=== PATIENT | male | born 1940 | race Caucasian/White ===

== ENCOUNTER 2016-05-02 09:27 | Emergency (ER) | payer OTHER, BC ==
[2016-05-02] MEDS ORDERED: KETOROLAC TROMETHAMINE 30 MG/1 ML VIAL IVPUSH ONE ×2 (09:38→10:30)
[2016-05-02] MEDS ORDERED: methylPREDNISolone NA SUCC 125 MG/2 ML VIAL IVPB ONE (09:38)
[2016-05-02 09:41] VITALS: PULSE 81; TEMP 97.3; BMI 28.6
[2016-05-02] MEDS ORDERED: KETOROLAC TROMETHAMINE 30 MG/1 ML VIAL ONE (09:42)
[2016-05-02] MEDS ORDERED: methylPREDNISolone NA SUCC 125 MG/2 ML VIAL ONE (09:42)
--- NOTE | 2016-05-02 09:45 | PDOC ---
History of Present Illness - General Chief Complaint: Pain, Acute Stated Complaint: LEFT FOOT GOUT Time Seen by Provider: 05/02/16 09:29 - History of Present Illness Initial Comments: 05/02/16 09:42 75-year-old male with a past medical history of hypertension, hyperlipidemia, and gout He's had multiple bouts of recurrent gout in the base of his left great toe For the past year, he has had tophi deposits on his left great toe Patient is complaining of a one-week flare of gout in his left great toe base He started taking Naprosyn at home, and he was starting to feel better However yesterday morning he ran out of Naprosyn Last night his left great toe base gout started worsening again He states the pain was severe through the night, and worse again this morning, prompting him to come to the emergency department He denies any dietary indiscretions, he denies any injury or trauma to the area He states that this is exactly the same as his prior gout flares He denies any other complaints at this time He denies any fevers or chills Past History - Past Medical History Allergies/Adverse Reactions: Allergies Allergy/AdvReac Type Severity Reaction Status Date / Time Sulfa (Sulfonamide Allergy Verified 05/27/15 09:15 Antibiotics) sulfur [From Sulfur-8] Allergy Verified 05/27/15 09:15 Home Medications: Ambulatory Orders Metoprolol Succinate [Toprol XL -] 25 mg PO DAILY 06/26/12 Atorvastatin Calcium 20 mg PO DAILY #90 tablet 02/25/14 Albuterol Sulfate Inhaler - [Ventolin HFA Inhaler -] 1 - 2 inh PO Q6H PRN #1 inhaler 09/08/14 Cholecalciferol (Vitamin D3) [Vitamin D3] 1,000 unit PO DAILY tablet 05/21/15 Indomethacin 25 mg PO DAILY 05/27/15 Indomethacin [Indocin -] 25 mg PO BID #14 capsule 05/02/16 Naproxen [Naprosyn -] 500 mg PO BID PRN 05/02/16 Oxycodone HCl/Acetaminophen [Percocet 5-325 mg Tablet] 1 tab PO Q6H PRN #10 tablet MDD 3 05/02/16 Prednisone [Deltasone -] 20 mg PO DAILY #15 tablet 05/02/16 Anemia: No Asthma: Yes (HAYFEVER) Cancer: No Cardiac Disorders: No CVA: No COPD: No CHF: No Dementia: No Diabetes: No GI Disorders: No Disorders: No HTN: Yes Hypercholesterolemia: Yes HIV: Yes Liver Disease: No Seizures: No Thyroid Disease: No Other medical history: GOUT - Surgical History Abdominal Surgery: No Appendectomy: No Cardiac Surgery: No Cholecystectomy: No Lung Surgery: No Neurologic Surgery: No Orthopedic Surgery: No - Immunization History Td Vaccination: Yes Immunization Up to Date: No - Psycho/Social/Smoking Cessation Hx Anxiety: No Suicidal Ideation: No Smoking Status: No Smoking History: Former smoker Have you smoked in the past 12 months: No Number of Cigarettes Smoked Daily: 0 If you are a former smoker, when did you quit?: 1969'S Cigars Per Day: 0 Information on smoking cessation initiated: No Hx Alcohol Use: Yes Drug/Substance Use Hx: No Substance Use Type: None Hx Substance Use Treatment: No *Physical Exam - Vital Signs Last Vital Signs Temp Pulse Resp BP Pulse Ox 97.3 F L 81 18 150/90 97 05/02/16 09:28 05/02/16 09:28 05/02/16 09:28 05/02/16 09:28 05/02/16 09:28 - Physical Exam Comments: 05/02/16 09:43 Physical exam Last Vital Signs Temp Pulse Resp BP Pulse Ox 97.3 F L 81 18 150/90 97 05/02/16 09:28 05/02/16 09:28 05/02/16 09:28 05/02/16 09:28 05/02/16 09:28 Patient is alert and answering questions Head is normocephalic and atraumatic Left lower extremity There is what appears to be in acute gout flare at the base of the left great toe The areas are very tender There are tophi deposits on the left great toe The toes are warm, with intact sensation and good capillary refill There is no evidence of lymphangitic streaking, or cellulitis Dorsalis pedis pulses intact ED Treatment Course - LABORATORY CBC & Chemistry Diagram: 05/02/16 09:45 05/02/16 09:45 Medical Decision Making - Medical Decision Making 05/02/16 09:45 Recurrent acute gout flare Was responding initially to NSAIDs, but patient has run out of Naprosyn In the past he has been treated with prednisone Will start with 15 mg of Toradol IV, and 125 mg of Solu-Medrol IV I will check his BUN and creatinine, as this has not been checked for about a year 05/02/16 11:04 After laboratory results, given another 15 mg of Toradol IV for total of 30 Laboratory Results - last 24 hr 05/02/16 05/02/16 09:45 09:45 WBC 6.8 RBC 4.70 Hgb 14.3 Hct 42.1 MCV 89.5 MCHC 33.9 RDW 12.3 Plt Count 186 MPV 7.9 D Sodium 138 Potassium 4.1 Chloride 103 Carbon Dioxide 27 Anion Gap 8 BUN 18 D Creatinine 1.0 Creat Clearance w eGFR > 60 Random Glucose 115 H Uric Acid 8.0 H Calcium 9.2 Total Bilirubin 0.8 AST 22 ALT 18 Alkaline Phosphatase 66 Total Protein 6.5 Albumin 3.7 Labwork consistent with acute gout with elevated uric acid Patient starting to feel better after medications We'll discharge to home on Indocin, and prednisone taper, Percocet if needed for nighttime pain only *DC/Admit/Observation/Transfer Diagnosis at time of Disposition: Gout attack Qualifiers: Encounter type: initial encounter Laterality: left - Discharge Dispostion Disposition: HOME Condition at time of disposition: Improved - Referrals Referrals: Pool Medina MD [Primary Care Provider] - 24 hours - Patient Instructions Printed Discharge Instructions: Gout, DI for Gout Additional Instructions: Indocin as directed-do not take this medication on an empty stomach Prednisone taper as directed-start at 6 PM this evening Percocet only if needed for nighttime pain Elevate and rest Followup with your primary care physician in 24-48 hours Return immediately if you worsen in any way Take your medications as directed
[2016-05-02 10:11] LABS: MCH 30.3 pg (25.7-33.7); MCHC 33.9 g/dl (32.0-35.9); MEAN CELL VOLUME 89.5 fl (80-96); MEAN PLT VOLUME 7.9 fl (7.5-11.1); PLATELET COUNT 186 K/MM3 (134-434); RDW 12.3 % (11.9-15.9); WHITE BLOOD COUNT 6.8 K/mm3 (4.0-10.0)
[2016-05-02 10:21] LABS: ALBUMIN 3.7 g/dl (3.5-5.0); ALK PHOS 66 U/L (32-92); ANION GAP 8 (8-16); BILIRUBIN,TOTAL 0.8 mg/dl (0.2-1.0); CALCIUM 9.2 mg/dl (8.4-10.2); CO2 27 mmol/L (22-28); GLUCOSE,RANDOM 115 mg/dl (74-106); SGOT/AST 22 U/L (10-42); SGPT/ALT 18 U/L (10-40); TOT PROT 6.5 g/dl (6.4-8.3)
[2016-05-02 10:34] VITALS: BP 146/85
== END 2016-05-02 11:16 | disposition home or self-care (01) ==
LOC: FER 09:27
PROC: 3E0333Z Introduction of Anti-inflammatory into Peripheral Vein, Percutaneous Approach (ICD-10-PCS; principal; 2016-05-02)
PROC: 3E033GC Introduction of Other Therapeutic Substance into Peripheral Vein, Percutaneous Approach (ICD-10-PCS; 2016-05-02)
DX: M10.9 Gout, unspecified (principal); I10 Essential (primary) hypertension; E78.5 Hyperlipidemia, unspecified; Z21 Asymptomatic human immunodeficiency virus [HIV] infection status
CPT/HCPCS: 36415; 80053; 84550; 85027; 99281-25

== ENCOUNTER 2016-07-06 19:52 | Emergency (ER) | payer OTHER, BC ==
--- NOTE | 2016-07-06 19:59 | PDOC ---
History of Present Illness - General History Source: Patient, Old Records Exam Limitations: No Limitations - History of Present Illness Initial Comments: 07/06/16 20:16 The patient is a 75 year old male presenting with his , with a significant past medical history of hypertension, hyperlipidemia, and gout, who presents to the emergency department with a gout flare up on his right foot. He's had multiple bouts of recurrent gout in the base of his left great toe. Patient is complaining of a 4 day flare of gout in his right foot. He states the pain was severe through the night, and worse again this morning, prompting him to come to the emergency department. 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 The patient denies chest pain, shortness of breath, headache and dizziness. Denies fever, chills, nausea, vomit, diarrhea and constipation. Denies dysuria, frequency, urgency and hematuria. Allergies: Sulfa and Sulfur Past surgical history: None reported Social history: Social alcohol use. No drug or tobacco use. PMD - Dr Maddy Medina <Dave Lucia - Last Filed: 07/06/16 20:16> - General History Source: Patient Exam Limitations: No Limitations <Marybeth Crews - Last Filed: 07/08/16 08:47> - General Chief Complaint: Pain, Acute Stated Complaint: GOUT PAIN RIGHT FOOT Time Seen by Provider: 07/06/16 19:54 Past History <Dave Lucia - Last Filed: 07/06/16 20:16> - Past Medical History Anemia: No Asthma: Yes (HAYFEVER) Cancer: No Cardiac Disorders: No CVA: No COPD: No CHF: No Dementia: No Diabetes: No GI Disorders: No Disorders: No HTN: Yes Hypercholesterolemia: Yes HIV: Yes Liver Disease: No Seizures: No Thyroid Disease: No - Surgical History Abdominal Surgery: No Appendectomy: No Cardiac Surgery: No Cholecystectomy: No Lung Surgery: No Neurologic Surgery: No Orthopedic Surgery: No - Immunization History Td Vaccination: Yes Immunization Up to Date: No - Psycho/Social/Smoking Cessation Hx Anxiety: No Suicidal Ideation: No Smoking Status: No Smoking History: Former smoker Have you smoked in the past 12 months: No Number of Cigarettes Smoked Daily: 0 If you are a former smoker, when did you quit?: Cigars Per Day: 0 Hx Alcohol Use: Yes Drug/Substance Use Hx: No Substance Use Type: None Hx Substance Use Treatment: No <Marybeth Crews - Last Filed: 07/08/16 08:47> - Past Medical History Allergies/Adverse Reactions: Allergies Allergy/AdvReac Type Severity Reaction Status Date / Time Sulfa (Sulfonamide Allergy Verified 07/06/16 19:54 Antibiotics) sulfur [From Sulfur-8] Allergy Verified 07/06/16 19:54 Home Medications: Ambulatory Orders Acetaminophen W/ Codeine #3 [Tylenol # 3 -] 1 tab PO TID PRN #12 tablet MDD 3 Atorvastatin Ca [Lipitor] 20 mg PO HS 07/06/16 Methylprednisolone [Medrol Dose Octavio] 4 mg PO ASDIR #21 tablet 07/06/16 Metoprolol Succinate [Toprol Xl] 25 mg PO DAILY 07/06/16 Review of Systems - Review of Systems Able to Perform ROS?: Yes Comments:: 07/06/16 20:17 GENERAL/CONSTITUTIONAL: No: fever, chills, weakness, loss of appetite. HEAD, EYES, EARS, NOSE AND THROAT: No: change in vision, ear pain, discharge, sore throat, throat swelling. CARDIOVASCULAR: No: chest pain, lightheadedness, palpitations, syncope RESPIRATORY: No: cough, shortness of breath, wheezing, hemoptysis, stridor. GASTROINTESTINAL: No: nausea, vomiting, abdominal cramping, diarrhea, rectal bleeding, constipation. MUSCULOSKELET AL: No: back pain, neck pain, joint pain, muscle swelling or pain EXTREMITIES: +Right foot gout flare up. NEUROLOGIC: No: headache, vertigo, paresthesias, weakness ENDOCRINE: No: unexplained weight gain or loss <Dave Lucia - Last Filed: 07/06/16 20:16> *Physical Exam - Vital Signs Last Vital Signs Temp Pulse Resp BP Pulse Ox 97.5 F L 68 16 184/106 100 07/06/16 20:04 07/06/16 20:04 07/06/16 20:04 07/06/16 20:04 07/06/16 20:04 - Physical Exam Comments: 07/06/16 20:17 GENERAL: The patient is in no acute distress. HEAD: Normal with no signs of trauma. EYES: PERRLA, EOMI, sclera anicteric, conjunctiva clear. ENT: Ears normal, nares patent, oropharynx clear without exudates. Moist mucous membranes. NECK: Normal range of motion, supple without lymphadenopathy, JVD, or masses. LUNGS: Breath sounds equal, clear to auscultation bilaterally. No wheezes, and no crackles. HEART:Regular rate and rhythm, normal S1 and S2 without murmur, rub or gallop. ABDOMEN: Soft, nontender, normoactive bowel sounds. No guarding, no rebound. EXTREMITIES: T+here is what appears to be in acute gout flare at the base of the right foot. The areas are very tender. The toes are warm, with intact sensation and good capillary refill. There is no evidence of lymphangitic streaking, or cellulitis. Dorsalis pedis pulses intact. NEUROLOGICAL: Cranial nerves II through XII grossly intact. Normal speech. No focal neurological deficits. MUSCULOSKELETAL: Back non-tender to palpation, no CVA tenderness SKIN: Warm, Dry, normal turgor, no rashes or lesions noted. <Dave Lucia - Last Filed: 07/06/16 20:16> ED Treatment Course - LABORATORY CBC & Chemistry Diagram: 07/06/16 20:25 07/06/16 20:25 <Marybeth Crews - Last Filed: 07/08/16 08:47> Medical Decision Making - Medical Decision Making 07/06/16 19:58 A portion of this note was documented by scribe services under my direction. I have reviewed the details of the note, within reason, and agree with the documentation with the following case summary and management plan written by me. Nursing documentation reviewed and incorporated into medical decision making Right foot swelling and erythema Pt states this feels to him like gout He was seen by his Nutrition Partner who gave him a local injection for gout He has had no fevers or chills Area over the dorsum of the metatarsals near digits 2-4 swollen, slightly erythematous, not warm, Pt reports that pain is mostly on the dorsum of the foot DD: Gout, Pseudogout, Cellulitis, 07/06/16 21:20 Laboratory Tests 05/02/16 05/02/16 07/06/16 09:45 09:45 20:25 WBC 6.8 11.7 H D Hgb 14.3 13.2 Hct 42.1 39.7 Plt Count 186 189 BUN 18 D Creatinine 1.0 Uric Acid 8.0 H 07/06/16 20:25 WBC Hgb Hct Plt Count BUN 19 H Creatinine 1.4 H D Uric Acid 8.7 H Uric acid elevated WBC elevated (Recently on prednisone) Pt describes this as a flair of his gout Will: HOLD NSAIDS (Cr.CL <60 and I have no ability to monitor his creatinine) Will give Medrol dose pack Will discharge on Tylenol #[address] Medina in 3-4 days for repeat chemistries Pt asked to stay hydrated Return precautions given, if erythema worsens or spreads, pt asked to return to the ER as he will need treatment for cellulitis <Marybeth Crews - Last Filed: 07/08/16 08:47> *DC/Admit/Observation/Transfer - Attestations Scribe Attestion: 07/06/16 20:17 Documentation prepared by Dave Lucia, acting as medical/surgery registered nurse for Marybeth Crews MD <Dave Lucia - Last Filed: 07/06/16 20:16> <Marybeth Crews - Last Filed: 07/08/16 08:47> Diagnosis at time of Disposition: Gout attack Qualifiers: Gout site: foot Gout etiology: other secondary cause Laterality: right Qualified Code(s): M10.471 - Other secondary gout, right ankle and foot - Discharge Dispostion Disposition: HOME Condition at time of disposition: Stable - Prescriptions Prescriptions: Methylprednisolone [Medrol Dose Octavio] 4 mg PO ASDIR #21 tablet Acetaminophen W/ Codeine #3 [Tylenol # 3 -] 1 tab PO TID PRN #12 tablet MDD 3 PRN Reason: foot pain - Referrals Referrals: Pool Medina MD [Primary Care Provider] - - Patient Instructions Printed Discharge Instructions: DI for Gout, Gout (Alternative Therapy) Additional Instructions: Thank you for coming in to the ER today Please monitor your foot for increased, spreading redness Monitor yourself for fever Please take pain medications as prescribed Please have your kidney blood tests rechecked Return to the ER for any other concerns or complaints
[2016-07-06] MEDS ORDERED: KETOROLAC TROMETHAMINE 30 MG/1 ML VIAL IVPUSH ONE (20:06)
[2016-07-06] MEDS ORDERED: methylPREDNISolone NA SUCC 125 MG/2 ML VIAL IVPB ONE (20:07)
[2016-07-06 20:09] VITALS: BP 184/106; PULSE 68; TEMP 97.5; BMI 28.8
[2016-07-06 20:36] LABS: BASOPHIL 0.5 % (0-2.0); MCHC 33.3 g/dl (32.0-35.9); MEAN CELL VOLUME 89.9 fl (80-96); MEAN PLT VOLUME 8.4 fl (7.5-11.1); PLATELET COUNT 189 K/MM3 (134-434); WHITE BLOOD COUNT 11.7 K/mm3 (4.0-10.8)
[2016-07-06 20:48] LABS: ALBUMIN 3.5 g/dl (3.5-5.0); ALK PHOS 61 U/L (32-92); ANION GAP 5 (8-16); BILIRUBIN,TOTAL 0.9 mg/dl (0.2-1.0); CALCIUM 8.8 mg/dl (8.4-10.2); CO2 27 mmol/L (22-28); CREATININE 1.4 mg/dl (0.6-1.3); GLUCOSE,RANDOM 110 mg/dl (74-106); SGOT/AST 21 U/L (10-42); SGPT/ALT 17 U/L (10-40); TOT PROT 6.1 g/dl (6.4-8.3); URIC ACID 8.7 mg/dl (2.6-7.2)
[2016-07-06] MEDS ORDERED: KETOROLAC TROMETHAMINE 30 MG/1 ML VIAL ONE (21:02)
[2016-07-06] MEDS ORDERED: methylPREDNISolone NA SUCC 125 MG/2 ML VIAL ONE (21:02)
== END 2016-07-06 21:30 | disposition home or self-care (01) ==
LOC: FER 19:52
PROC: 3E033GC Introduction of Other Therapeutic Substance into Peripheral Vein, Percutaneous Approach (ICD-10-PCS; principal; 2016-07-06)
DX: M10.471 Other secondary gout, right ankle and foot (principal); Z21 Asymptomatic human immunodeficiency virus [HIV] infection status; J30.1 Allergic rhinitis due to pollen; I10 Essential (primary) hypertension; E78.00 Pure hypercholesterolemia, unspecified; Z87.891 Personal history of nicotine dependence
CPT/HCPCS: 36415; 80053; 84550; 85025; 96374; 99281-25

== ENCOUNTER 2016-09-19 17:39 | Emergency (ER) | payer OTHER, BC ==
[2016-09-19] MEDS ORDERED: DEXAMETHASONE 4 MG TABLET (FP) PO ONE (17:44)
[2016-09-19] MEDS ORDERED: NAPROXEN 500 MG TABLET (FP) PO ONE (17:44)
--- NOTE | 2016-09-19 17:44 | PDOC ---
History of Present Illness <Joel Lujan - Last Filed: 09/19/16 17:44> - General History Source: Patient, Old Records Exam Limitations: No Limitations - History of Present Illness Initial Comments: 09/19/16 17:52 The patient is a 76 year old male, with a significant past medical history of hypertension, hyperlipidemia and gout, who presents to the emergency department with a gout flare up of his left elbow for the past 3 days. The patient states that he has had multiple gout flare ups in both of his great toes and left elbow in the past. The patient denies fever or chills. Allergies: Sulfa, Sulfur. Past Surgical History: None reported. Social History: Former smoker. Reports occasional alcohol consumption. Denies drug use. <Carin Alcantara - Last Filed: 09/19/16 17:52> - General Chief Complaint: Pain, Acute Stated Complaint: FLAIR UP OF GOUT LEFT ELBOW Time Seen by Provider: 09/19/16 17:44 Past History - Past Medical History Anemia: No Asthma: Yes (HAYFEVER) Cancer: No Cardiac Disorders: No CVA: No COPD: No CHF: No Dementia: No Diabetes: No GI Disorders: No Disorders: No HTN: Yes Hypercholesterolemia: Yes HIV: Yes Liver Disease: No Seizures: No Thyroid Disease: No - Surgical History Abdominal Surgery: No Appendectomy: No Cardiac Surgery: No Cholecystectomy: No Lung Surgery: No Neurologic Surgery: No Orthopedic Surgery: No - Immunization History Td Vaccination: Yes Immunization Up to Date: No - Psycho/Social/Smoking Cessation Hx Anxiety: No Suicidal Ideation: No Smoking Status: No Smoking History: Former smoker Have you smoked in the past 12 months: No Number of Cigarettes Smoked Daily: 0 If you are a former smoker, when did you quit?: 1969' Cigars Per Day: 0 Hx Alcohol Use: Yes Drug/Substance Use Hx: No Substance Use Type: None Hx Substance Use Treatment: No <Joel Lujan - Last Filed: 09/19/16 17:44> <Carin Alcantara - Last Filed: 09/19/16 17:52> - Past Medical History Allergies/Adverse Reactions: Allergies Allergy/AdvReac Type Severity Reaction Status Date / Time Sulfa (Sulfonamide Allergy Intermediate Verified 09/19/16 17:49 Antibiotics) sulfur [From Sulfur-8] Allergy Verified 09/19/16 17:50 Home Medications: Ambulatory Orders Atorvastatin Ca [Lipitor] 20 mg PO HS 07/06/16 Metoprolol Succinate [Toprol Xl] 25 mg PO DAILY 07/06/16 Aspirin [ASA -] 81 mg PO DAILY 09/19/16 Review of Systems - Review of Systems Able to Perform ROS?: Yes Comments:: 09/19/16 17:50 CONSTITUTIONAL: Absent: fever, no chills, no fatigue EYES: Absent: visual changes ENT: Absent: ear pain, no sore throat CARDIOVASCULAR: Absent: chest pain, no palpitations RESPIRATORY: Absent: cough, no SOB GI: Absent: abdominal pain, no nausea, no vomiting, no constipation, no diarrhea GENITOURINARY: Absent: dysuria, no frequency, no hematuria MUSCULOSKELETAL: Present: +Left elbow pain and swelling Absent: back pain, no myalgia SKIN: Absent: rash NEURO: Absent: headache <Carin Alcantara Filed: 09/19/16 17:52> *Physical Exam - Physical Exam Comments: 09/19/16 17:49 GENERAL: Well-appearing, well-nourished. No apparent distress. HEENT: Normocephalic, atraumatic. PERRL, EOM intact. PULMONARY: Clear to auscultation bilaterally. EXTREMITIES: Left elbow, mild soft tissue swelling at site of the olecranon bursa with minimal increased warmth and minimal tenderness to palpation with range of motion. Full ROM at that joint. Normal ROM in all four extremities. No gross deformities. SKIN: Warm, dry. No rash NEUROLOGICAL: No focal neurological deficits. <Carin Alcantara Filed: 09/19/16 17:52> Medical Decision Making - Medical Decision Making 09/19/16 17:44 The patient is well-appearing and in no acute distress His clinical presentation is quite consistent with an acute gout flare Clinical impression: Acute exacerbation of chronic gout I discussed the physical exam findings, ancillary test results and final diagnoses with the patient. I answered all of the patient's questions. The patient was satisfied with the care received and felt comfortable with the discharge plan and treatment plan. The patient will call their primary care physician within 24 hours to arrange follow-up and will return to the Emergency Department with any new, persistent or worsening symptoms. <Joel Lujan Filed: 09/19/16 17:44> *DC/Admit/Observation/Transfer <Joel Lujan - Last Filed: 09/19/16 17:44> - Attestations Scribe Attestion: 09/19/16 17:49 Documentation prepared by Carin Alcantara, acting as medical education specialist for Joel Lujan MD. <Carin Alcantara - Last Filed: 09/19/16 17:52> Diagnosis at time of Disposition: Acute gout due to renal impairment involving left elbow - Discharge Dispostion Disposition: HOME Condition at time of disposition: Improved - Referrals Referrals: Maycol Núñez MD [Staff Physician] - - Patient Instructions Printed Discharge Instructions: DI for Gout Additional Instructions: Take the Naprosyn twice daily Make sure he take it on a full stomach and with a glass of water. Return to the emergency department immediately with ANY new, persistent or worsening symptoms. You MUST call and follow up with your doctor tomorrow. Please make sure your doctor reviews the results of your emergency department evaluation.
[2016-09-19 17:49] VITALS: BP 154/86; PULSE 71; TEMP 98.3; BMI 28.8
[2016-09-19] MEDS ORDERED: DEXAMETHASONE SOD PHOSPHATE 10 MG/1 ML VIAL ONE (18:02)
[2016-09-19] MEDS ORDERED: NAPROXEN 500 MG TABLET (FP) ONE (18:02)
== END 2016-09-19 18:12 | disposition home or self-care (01) ==
LOC: FER 17:39
DX: M10.9 Gout, unspecified (principal)
CPT/HCPCS: 99282-25

== ENCOUNTER 2016-11-16 22:08 | Emergency (ER) | payer OTHER, BC ==
[2016-11-16] MEDS ORDERED: LORATADINE 10 MG TABLET PO ONE (22:16)
--- NOTE | 2016-11-16 22:22 | PDOC ---
History of Present Illness - General Chief Complaint: Cold Symptoms Stated Complaint: NASAL CONGESTION Time Seen by Provider: 11/16/16 22:12 History Source: Patient Exam Limitations: No Limitations - History of Present Illness Initial Comments: 11/16/16 22:17 This is a 76-year-old male who comes in complaining of nasal congestion since 4 PM today. Patient has a history of seasonal ALLERGIES and has had similar symptoms in the past both in the spring and in the fall. Patient denies any upper respiratory tract symptoms such as cough, congestion, fever, chills, shortness of breath, sore throat or any other complaints. Patient has a history of hypertension, high cholesterol. PAST MEDICAL HISTORY: no significant history PAST SURGICAL HISTORY: no significant history FAMILY HISTORY: no pertinant history SOCIAL HISTORY: Pt lives with family and is employed. MEDICATIONS: reviewed ALLERGIES: As per nursing notes Review of Systems General: No fevers or chills, no weakness, no weight loss HEENT: No change in vision. No sore throat,. No ear pain CardioVascular: No chest pain or shortness of breath Respiratory:No cough, or wheezing. Gastrointestinal: no nausea, vomitting, diarrhea or constipation, No rectal bleeding Genitourinary: No dysuria, hematuria, or frequency Musculoskeletal: No joint or muscle pain or swelling Neurologic: No headache, vertigo, dizziness or loss of consciousness Psychiatric: nor depression Skin: No rashes or easy bruising Endocrine: no increased thirst or abnormal weight change Allergic: no skin or latex allergy All other systems reviewed and normal Exam: General: Well-nourished well-developed individual, no acute distress HEENT: Throat: Normal, tonsils normal, no erythema or exudate Neck: Supple, no meningeal signs, no lymphadenopathy Nose: Patient's nose is decongestive bilateral Eyes::Pupils equal reactive and round, extraocular motion intact Chest: Nontender to palpation Cardiac: S1-S2 normal, regular rate and rhythm, no murmurs rubs or gallops Respiratory: Lungs clear to auscultation bilateral, there is no wheezing Abdomen: Soft, nondistended, normal bowel sounds, nontender to palpation diffusely Extremities: Warm, dry, no cyanosis, clubbing, or edema Skin: No rashes Neuro: Alert and oriented x3, nonfocal exam, grossly intact, normal gait Psych: Normal mood and affect Assessment and plan: This is 76-year-old male who comes in complaining of nasal congestion. Patient has seasonal ALLERGIES and this is most likely is seasonal ALLERGIES as he has no other symptoms of an upper respiratory tract infection. Patient was given Claritin here in the emergency room and told to get over-the- counter Elin or Claritin and take as directed on the box. Past History - Past Medical History Allergies/Adverse Reactions: Allergies Allergy/AdvReac Type Severity Reaction Status Date / Time Sulfa (Sulfonamide Allergy Intermediate Verified 11/16/16 22:10 Antibiotics) sulfur [From Sulfur-8] Allergy Verified 11/16/16 22:10 Home Medications: Ambulatory Orders Atorvastatin Ca [Lipitor] 20 mg PO HS 07/06/16 Metoprolol Succinate [Toprol Xl] 25 mg PO DAILY 07/06/16 Aspirin [ASA -] 81 mg PO DAILY 09/19/16 Cholecalciferol (Vitamin D3) [Vitamin D3] 2,000 unit PO DAILY 09/19/16 Anemia: No Asthma: Yes (HAYFEVER) Cancer: No Cardiac Disorders: No CVA: No COPD: No CHF: No Dementia: No Diabetes: No GI Disorders: No Disorders: No HTN: Yes Hypercholesterolemia: Yes HIV: Yes Liver Disease: No Seizures: No Thyroid Disease: No - Surgical History Abdominal Surgery: No Appendectomy: No Cardiac Surgery: No Cholecystectomy: No Lung Surgery: No Neurologic Surgery: No Orthopedic Surgery: No - Immunization History Td Vaccination: Yes Immunization Up to Date: No - Psycho/Social/Smoking Cessation Hx Anxiety: No Suicidal Ideation: No Smoking Status: No Smoking History: Former smoker Have you smoked in the past 12 months: No Number of Cigarettes Smoked Daily: 0 If you are a former smoker, when did you quit?: Cigars Per Day: 0 Hx Alcohol Use: Yes Drug/Substance Use Hx: No Substance Use Type: None Hx Substance Use Treatment: No *DC/Admit/Observation/Transfer Diagnosis at time of Disposition: Allergic rhinitis Qualifiers: Chronicity: acute Allergic rhinitis trigger: unspecified Allergic rhinitis seasonality: seasonal Qualified Code(s): J30.2 - Other seasonal allergic rhinitis - Discharge Dispostion Disposition: HOME Condition at time of disposition: Stable Admit: No - Patient Instructions Additional Instructions: Your symptoms are most likely secondary to seasonal ALLERGIES. Purchase either [id number] Elin or Claritin and take as directed on the box. Take the medication until symptoms resolve and don't return once she stopped taking the medication Return to the emergency department immediately with ANY new, persistent or worsening symptoms. Continue any medications as previously prescribed by your physician. You should follow up with your primary doctor as soon as possible regarding today's emergency department visit. . Please make sure your doctor reviews the results of your emergency evaluation. Thank you for coming to the Emergency Department today for your care. It was a pleasure to see you today. Please note that your evaluation is INCOMPLETE until you follow-up with your doctor.
[2016-11-16 22:24] VITALS: BP 125/70; PULSE 78; TEMP 98; BMI 28.0
== END 2016-11-16 22:31 | disposition home or self-care (01) ==
LOC: FER 22:08
DX: J30.2 Other seasonal allergic rhinitis (principal); Z87.891 Personal history of nicotine dependence; I10 Essential (primary) hypertension; Z21 Asymptomatic human immunodeficiency virus [HIV] infection status; E78.00 Pure hypercholesterolemia, unspecified; J30.1 Allergic rhinitis due to pollen
CPT/HCPCS: 99281-25

== ENCOUNTER 2017-09-25 11:19 | Emergency (ER) | payer OTHER, BC ==
[2017-09-25 11:28] VITALS: BP 158/94; PULSE 83; TEMP 97.6; BMI 28.8
[2017-09-25] MEDS ORDERED: ALBUTEROL SO4 2.5/IPRATROPIUM 0.5 INH SOL 3 ML VIAL.NEB. NEB ONE ×2 (12:18→12:49)
--- NOTE | 2017-09-25 12:19 | PDOC ---
History of Present Illness - General Chief Complaint: Respiratory Stated Complaint: "CHEST CONGESTION", WHEEZING Time Seen by Provider: 09/25/17 11:52 History Source: Patient Exam Limitations: No Limitations - History of Present Illness Initial Comments: 09/25/17 12:13 77-year-old male with a history of prior smoking quit 30 years ago hypertension here today complaining of cough and chest congestion. Patient states he has been having these symptoms he has been using inhalers intermittently with mild relief states he has a lot of increased mucus or sputum production which is white denies fevers chills denies chest pain no peripheral leg edema no other complaints. Patient does have chronic sinusitis has had previous sinus surgery is uncertain if he has seasonal ALLERGIES was using Flonase in the past has not been using recently Past History - Past Medical History Allergies/Adverse Reactions: Allergies Allergy/AdvReac Type Severity Reaction Status Date / Time Sulfa (Sulfonamide Allergy Intermediate Verified 09/25/17 11:20 Antibiotics) sulfur [From Sulfur-8] Allergy Verified 09/25/17 11:20 Home Medications: Ambulatory Orders Atorvastatin Ca [Lipitor] 20 mg PO HS 07/06/16 Metoprolol Succinate [Toprol Xl] 25 mg PO DAILY 07/06/16 Cholecalciferol (Vitamin D3) [Vitamin D3] 2,000 unit PO DAILY 09/19/16 Albuterol 0.083% Nebulizer Edith [Ventolin 0.083%] 1 neb NEB QID PRN 09/25/17 Albuterol Sulfate Inhaler - [Ventolin Hfa Inhaler -] 1 - 2 inh PO Q4H PRN Azelastine HCl 137 mcg NS ASDIR 09/25/17 Ipratropium [place] [Atrovent Hfa] 12.9 gm IH ASDIR 09/25/17 Prednisone [Deltasone] 20 mg PO BID #10 tablet MDD 2 09/25/17 Anemia: No Asthma: Yes (HAYFEVER) Cancer: No Cardiac Disorders: No CVA: No COPD: No CHF: No Dementia: No Diabetes: No GI Disorders: No Disorders: No HTN: Yes Hypercholesterolemia: Yes Liver Disease: No Seizures: No Thyroid Disease: No - Surgical History Abdominal Surgery: No Appendectomy: No Cardiac Surgery: No Cholecystectomy: No Lung Surgery: No Neurologic Surgery: No Orthopedic Surgery: No - Immunization History Td Vaccination: Yes Immunization Up to Date: No - Suicide/Smoking/Psychosocial Hx Smoking Status: No Smoking History: Former smoker Have you smoked in the past 12 months: No Number of Cigarettes Smoked Daily: 0 If you are a former smoker, when did you quit?: 1969'S Cigars Per Day: 0 Information on smoking cessation initiated: No Hx Alcohol Use: No Drug/Substance Use Hx: No Substance Use Type: None Hx Substance Use Treatment: No Review of Systems - Review of Systems Constitutional: No: Chills, Diaphoresis Respiratory: Yes: Shortness of Breath, Wheezing, Productive cough Cardiac (ROS): No: Chest Pain ABD/GI: No: Poor Appetite, Vomiting Integumentary: No: Bruising, Change in Color All Other Systems: Reviewed and Negative *Physical Exam - Vital Signs Last Vital Signs Temp Pulse Resp BP Pulse Ox 97.6 F 83 20 158/94 100 09/25/17 11:19 09/25/17 11:19 09/25/17 11:19 09/25/17 11:19 09/25/17 11:19 - Physical Exam General Appearance: Yes: Appropriately Dressed HEENT: positive: Normal ENT Inspection Neck: positive: Trachea midline Respiratory/Chest: positive: Normal Breath Sounds, Wheezing. negative: Chest Tender Cardiovascular: positive: Regular Rhythm, Regular Rate, S1, S2 Gastrointestinal/Abdominal: positive: Normal Bowel Sounds, Flat, Soft. negative : Tender Musculoskeletal: positive: Normal Inspection. negative: CVA Tenderness Extremity: positive: Normal Capillary Refill, Normal Inspection Integumentary: positive: Normal Color, Dry, Warm Neurologic: positive: Fully Oriented, Alert ED Treatment Course - RADIOLOGY Radiology Studies Ordered: Category Date Time Status CHEST PA & LAT [RAD] Stat Radiology 09/25/17 11:53 Taken Medical Decision Making - Medical Decision Making 09/25/17 12:22 77-year-old male history of hypertension hyperlipidemia previous wheezing here today with bronchospasm wheezing on exam differential includes pneumonia, CHF, bronchitis, ALLERGIC postnasal drip. Plan chest x-ray DuoNeb nebs for wheezing would recommend a Flonase and ALLERGY medication as well as discharge will reassess after duoneb likely discharge home 09/25/17 12:48 pt lung exam after neb no wheezing. cxr unremarkale. will treat bronchitis nebs , steroids recommend follow upwtih dr. medina, and pulmonary. 09/25/17 13:02 dr medina pgd awaiting call back *DC/Admit/Observation/Transfer Diagnosis at time of Disposition: Bronchitis with bronchospasm - Discharge Dispostion Disposition: HOME Condition at time of disposition: Improved - Prescriptions Prescriptions: Prednisone [Deltasone] 20 mg PO BID #10 tablet MDD 2 - Referrals Referrals: Pool Medina MD [Primary Care Provider] - - Patient Instructions Printed Discharge Instructions: DI for Acute Bronchitis Additional Instructions: you should use your albuterol inhaler 2 puffs every 4 hours as needed for wheezing, cough and mucous or shortness of breath. take prednisone 20 mg twice daily x 5 days. return for any problems or concerns. follow up with your primary care doctor. dr. medina. call to schedule this week. return for fever, worsening symptoms, chest pain or any concerns. you should also try daily allergy medication such as zyrtec 5 mg daily during summer and fall months. - Post Discharge Activity
[2017-09-25] MEDS ORDERED: predniSONE 20 MG TABLET (UD) PO ONE (12:48)
[2017-09-25] MEDS ORDERED: predniSONE 20 MG TABLET (UD) ONE (12:50)
== END 2017-09-25 13:00 | disposition home or self-care (01) ==
LOC: FER 11:19
PROC: 3E0F7GC Introduction of Other Therapeutic Substance into Respiratory Tract, Via Natural or Artificial Opening (ICD-10-PCS; principal; 2017-09-25)
DX: J20.9 Acute bronchitis, unspecified (principal); I10 Essential (primary) hypertension; E78.00 Pure hypercholesterolemia, unspecified; Z87.891 Personal history of nicotine dependence; Z88.2 Allergy status to sulfonamides
CPT/HCPCS: 71046-TC-FY; 99283-25; J7620

== ENCOUNTER 2018-06-15 15:25 | Emergency (ER) | payer OTHER, BC ==
[2018-06-15 15:32] VITALS: BP 146/79; PULSE 80; TEMP 98.2; BMI 28.8
--- NOTE | 2018-06-15 15:41 | PDOC ---
History of Present Illness - General Chief Complaint: Respiratory Stated Complaint: COUGH, NASAL CONGESTION Time Seen by Provider: 06/15/18 15:27 History Source: Patient Exam Limitations: No Limitations - History of Present Illness Initial Comments: 06/15/18 15:39 77y M hx of htn, hl, asthma presents with several months/years of nasal congestion. Pt states he has a chronic post nasal drip that he nows feels like it is in his chest. he endorses increased coughing for several weeks and is constantly bringing up whitish sputum. pt endorses occasional wheezing (had some this morning, but non right now) - no associated L[place]ONO, cp, palpitations, abd pain, n/v, diaphorsis, epistaxis, headache, vision changes, neck pain. Denies any history of head injury or taruma. he had been using flonase for a few months and was switched to exhanse by his document manager. pt notes he has followed up wtih several ENT (had a scope in feb and ENT started him on antacid), also followed up with document manager. notse he is not significantly better after these inteventions and is the primary reason he is here today. surgical: remote sinus surgery PMD: Adam social: denies smoking, ivdu Past History - Past Medical History Allergies/Adverse Reactions: Allergies Allergy/AdvReac Type Severity Reaction Status Date / Time Sulfa (Sulfonamide Allergy Intermediate Verified 06/15/18 15:27 Antibiotics) sulfur [From Sulfur-8] Allergy Verified 06/15/18 15:27 Home Medications: Ambulatory Orders Atorvastatin Ca [Lipitor] 20 mg PO HS 07/06/16 Metoprolol Succinate [Toprol Xl] 25 mg PO DAILY 07/06/16 Cholecalciferol (Vitamin D3) [Vitamin D3] 2,000 unit PO DAILY 09/19/16 Albuterol 0.083% Nebulizer Edith [Ventolin 0.083%] 1 neb NEB QID PRN 09/25/17 Albuterol Sulfate Inhaler - [Ventolin Hfa Inhaler -] 1 - 2 inh PO Q4H PRN Azelastine HCl 137 mcg NS ASDIR 09/25/17 Ipratropium [place] [Atrovent Hfa] 12.9 gm IH ASDIR 09/25/17 Prednisone [Deltasone] 20 mg PO BID #10 tablet MDD 2 09/25/17 Anemia: No Asthma: Yes (HAYFEVER) Cancer: No Cardiac Disorders: No CVA: No COPD: No CHF: No Dementia: No Diabetes: No GI Disorders: No Disorders: No HTN: Yes Hypercholesterolemia: Yes Liver Disease: No Seizures: No Thyroid Disease: No - Surgical History Abdominal Surgery: No Appendectomy: No Cardiac Surgery: No Cholecystectomy: No Lung Surgery: No Neurologic Surgery: No Orthopedic Surgery: No - Immunization History Td Vaccination: Yes Immunization Up to Date: No - Suicide/Smoking/Psychosocial Hx Smoking Status: No Smoking History: Former smoker Have you smoked in the past 12 months: No Number of Cigarettes Smoked Daily: 20 If you are a former smoker, when did you quit?: 30 yrs ago Cigars Per Day: 0 Information on smoking cessation initiated: No Hx Alcohol Use: (occasional) Drug/Substance Use Hx: No Substance Use Type: None Hx Substance Use Treatment: No Review of Systems - Review of Systems Able to Perform ROS?: Yes Comments:: 06/15/18 16:14 Constitutional - no reported Fever, Chills, HEENT: +nasal congestion no reported vision changes, sore throat Respiratory: no reported cough, sob, hemoptysis Cardiac: no reported chest pain, palpitations, light headedness, leg swelling Abd/GI: no reported abd pain, nausea, vomiting, blood per rectum, melena, diarrhea : no reported dysuria, frequency, discharge Musculskelatal - no reported back pain, joint swelling skin - no reported bruising, erythema, rash neurological: no reported headache, numbness, focal weakness, tingling, ataxia, hematologic: no reported easy bruising, easy bleeding *Physical Exam - Vital Signs Last Vital Signs Temp Pulse Resp BP Pulse Ox 98.2 F 80 18 146/79 99 06/15/18 15:25 06/15/18 15:25 06/15/18 15:25 06/15/18 15:25 06/15/18 15:25 - Physical Exam Comments: 06/15/18 16:17 GENERAL: The patient is awake, alert, and fully oriented, Nontoxic - in no acute distress. HEAD: Normocephalic, atraumatic,no racoon eyes or battles sign EYES: extraocular movements intact, sclera anicteric, conjunctiva clear. ENT: Normal voice, Moist mucous membranes. NECK: Normal range of motion, supple LUNGS: Breath sounds equal, clear to auscultation bilaterally. No wheezes, no rhonchi, no rales. HEART: Regular rate and rhythm, normal S1 and S2 without murmur, rub or gallop. ABDOMEN: Soft, nontender No guarding, no rebound. No CVA tenderness EXTREMITIES: Normal range of motion, NEUROLOGICAL: No facial assymetry, Normal speech, PSYCH: Normal mood, normal affect. SKIN: Warm, Dry, normal turgor, Medical Decision Making - Medical Decision Making 06/15/18 16:18 post nasal drip/congestion no headache or risk factors for head injury or persistent chf leak unremarkble exam will obtain cxr to r/o pulm disease will have pt continue his exhanse and will have him fu with ENT/allergy for further evaluation I discussed the physical exam findings, ancillary test results and final diagnoses with the patient. I answered all of the patient's questions. The patient was satisfied with the care received and felt comfortable with the discharge plan and treatment plan. The patient will call their primary care physician within 24 hours to arrange follow-up and will return to the Emergency Department with any new, persistent or worsening symptoms. *DC/Admit/Observation/Transfer Diagnosis at time of Disposition: Post-nasal drip - Discharge Dispostion Disposition: HOME Condition at time of disposition: Stable Decision to Admit order: No - Referrals Referrals: Pool Medina MD [Primary Care Provider] - - Patient Instructions Printed Discharge Instructions: DI for Nasal Congestion Additional Instructions: Return to the emergency department immediately with ANY new, persistent or worsening symptoms. Continue using your Xhanse as prescribed and follow up with your ENT & allergy doctor as scheduled. You MUST call and follow up with your doctor tomorrow for further evaluation of your symptoms. Results were discussed with you. Please make sure your doctor reviews the results of your emergency evaluation. If you had any xrays during your visit, it was read preliminarily by myself, a Radiologist will review it and if there are any additional findings we will call you. Print Language: BULGARIAN - Post Discharge Activity
== END 2018-06-15 16:50 | disposition home or self-care (01) ==
LOC: FER 15:25
DX: R09.82 Postnasal drip (principal); Z87.891 Personal history of nicotine dependence; I10 Essential (primary) hypertension; E78.00 Pure hypercholesterolemia, unspecified; J45.909 Unspecified asthma, uncomplicated
CPT/HCPCS: 71046-TC-FY; 99283-25

== ENCOUNTER 2019-01-14 01:22 | Emergency (ER) | payer OTHER, BC ==
--- NOTE | 2019-01-14 01:23 | PDOC ---
History of Present Illness - General Chief Complaint: Cold Symptoms Stated Complaint: CHEST CONGESTION Time Seen by Provider: 01/14/19 01:23 - History of Present Illness Initial Comments: 01/14/19 01:46 This 78-year-old man with a history of HTN/HLD/seasonal allergies presents with few hour history of "chest congestion" and cough productive of whitish sputum. No history of fever/chills or shortness of breath. Patient states that he had influenza immunization approximately 10 days ago. Soon after, he had onset of myalgias and malaise, which has improved but is still present. He denies sore throat/runny nose or other upper respiratory symptoms. There has been no nausea /vomiting/diarrhea. He states that he has not been exposed to any indoor environmental allergies his past his usual outdoor allergy season. He has been taking his medications as prescribed and as noted below. Allergies: Sulfa, environmental allergies Medications as noted below No smoking for the last 30 years (prior to that, 1 pack/day); no daily ethanol or other recreational drugs Past History - Past Medical History Allergies/Adverse Reactions: Allergies Allergy/AdvReac Type Severity Reaction Status Date / Time Sulfa (Sulfonamide Allergy Intermediate Verified 06/15/18 15:27 Antibiotics) sulfur [From Sulfur-8] Allergy Verified 06/15/18 15:27 Home Medications: Ambulatory Orders Atorvastatin Ca [Lipitor] 20 mg PO HS 07/06/16 Metoprolol Succinate [Toprol Xl] 25 mg PO DAILY 07/06/16 Albuterol Sulfate Inhaler - [Ventolin Hfa Inhaler -] 1 - 2 inh PO Q4H PRN Mometasone/Formoterol [Dulera 200 Mcg/5 Mcg Inhaler] 2 inh IH BID 01/14/19 predniSONE [Deltasone -] 20 mg PO BID #8 tablet 01/14/19 Anemia: No Asthma: Yes (HAYFEVER) Cancer: No Cardiac Disorders: No CVA: No COPD: No CHF: No Dementia: No Diabetes: No GI Disorders: No Disorders: No HTN: Yes Hypercholesterolemia: Yes Liver Disease: No Seizures: No Thyroid Disease: No - Surgical History Abdominal Surgery: No Appendectomy: No Cardiac Surgery: No Cholecystectomy: No Lung Surgery: No Neurologic Surgery: No Orthopedic Surgery: No - Immunization History Td Vaccination: Yes Immunization Up to Date: No - Psycho Social/Smoking Cessation Hx Smoking Status: No Smoking History: Former smoker Have you smoked in the past 12 months: No Number of Cigarettes Smoked Daily: 20 If you are a former smoker, when did you quit?: 30 yrs ago Cigars Per Day: 0 Hx Alcohol Use: (occasional) Drug/Substance Use Hx: No Substance Use Type: None Hx Substance Use Treatment: No Review of Systems - Review of Systems Able to Perform ROS?: Yes Comments:: 12 point review of systems is negative except for what is noted in the history of present illness *Physical Exam - Physical Exam Comments: GENERAL: Adult male, alert and oriented x3, coughing frequently but speaking in full sentences; pulse oximetry 97% on room air; no acute respiratory distress HEAD: Normal with no signs of trauma. EYES: PERRLA, EOMI, sclera anicteric, conjunctiva clear. ENT: Ears normal, nares patent, oropharynx clear without exudates. Moist mucous membranes. NECK: Normal range of motion, supple without lymphadenopathy, JVD, or masses. LUNGS: Breath sounds equal, scattered bilateral expiratory wheezing. no crackles. HEART:Regular rate and rhythm, normal S1 and S2 without murmur, rub or gallop. ABDOMEN:.normal bowel sounds No guarding,tenderness or rebound.No masses No distention. EXTREMITIES: Normal range of motion, no edema. No clubbing or cyanosis. No erythema, or tenderness. NEUROLOGICAL: Cranial nerves II through XII grossly intact. Normal speech. No focal neurological deficits. MUSCULOSKELETAL: Back non-tender to palpation, no CVA tenderness SKIN: Warm, Dry, normal turgor, no rashes or lesions noted. ED Progress Note - Progress Note Progress Note: This 78-year-old man with a history of hypertension, hyperlipidemia, seasonal allergies ,gout , frequent upper respiratory and chest congestion presents with few hour history of cough productive of whitish sputum and frequent cough. Patient had been feeling generalized malaise for several days after receiving influenza immunization. He denies fever/chills or shortness of breath. No cough until this evening. Exam as noted with scattered wheezing heard bilaterally. Portable chest x-ray performed: Preliminary interpretation by ifrah evidence of effusion or infiltrates Duo neb nebulizer treatment given. After nebulizer treatment, no wheezing heard on exam with excellent air exchange. Frequent coughing has now ceased. Patient is much more comfortable after the DuoNeb treatment. He states that he has home nebulizer with albuterol solution that he has not yet used.. Clinical presentation consistent with bronchitis/bronchospasm, perhaps related to environmental allergies or viral etiology. Patient has an albuterol inhaler that he will use as needed ,as well as the albuterol nebulizer ,and he will be started on short oral prednisone course First dose of prednisone 40 mg given here in the ER (patient states that he will eat small meal when he returns home in approximately 10 minutes). Prescription for prednisone 20 mg twice a day for 4 more days sent to his pharmacy. Patient should plan on following up with his PMD, Dr. Rhodes within the next 2 to 3 days. If he has worsening shortness of breath, severe cough, persistent wheezing or develops fever/chills, he should return to the emergency room immediately Discharge - Discharge Information Problems reviewed: Yes Clinical Impression/Diagnosis: Bronchitis with bronchospasm Condition: Stable Disposition: HOME - Additional Discharge Information Prescriptions: predniSONE [Deltasone -] 20 mg PO BID #8 tablet - Follow up/Referral Referrals: Pool Medina MD [Primary Care Provider] - 3 days - Patient Discharge Instructions Patient Printed Discharge Instructions: DI for Acute Bronchitis Additional Instructions: Rest; drink plenty of water Albuterol 2 puffs every 4-6 hours as needed for wheezing Continue other medications as prescribed Prednisone 20 mg twice a day for 4 more days; take with food Follow-up with Dr. Medina within the next 3 days Return to ER if you have persistent wheezing, severe cough, shortness of breath or fever - Post Discharge Activity
[2019-01-14 01:35] VITALS: BP 160/76; PULSE 85; TEMP 98.7; BMI 28.8
[2019-01-14] MEDS ORDERED: ALBUTEROL SO4 2.5/IPRATROPIUM 0.5 INH SOL 3 ML VIAL.NEB. NEB ONE ×2 (01:36)
[2019-01-14] MEDS ORDERED: predniSONE 20 MG TABLET (UD) PO ONE (02:10)
[2019-01-14] MEDS ORDERED: predniSONE 20 MG TABLET (UD) ONE (02:12)
== END 2019-01-14 02:16 | disposition home or self-care (01) ==
LOC: FER 01:22
PROC: 3E0F7GC Introduction of Other Therapeutic Substance into Respiratory Tract, Via Natural or Artificial Opening (ICD-10-PCS; principal; 2019-01-14)
DX: J20.9 Acute bronchitis, unspecified (principal); Z88.2 Allergy status to sulfonamides; J30.2 Other seasonal allergic rhinitis; I10 Essential (primary) hypertension; E78.5 Hyperlipidemia, unspecified; Z87.891 Personal history of nicotine dependence
CPT/HCPCS: 71045-TC-FY; 99281-25

== ENCOUNTER 2021-06-01 09:07 | Emergency (ER) | payer OTHER, BC ==
[2021-06-01 09:13] VITALS: BP 128/64; PULSE 63; TEMP 97.5; BMI 27.3
[2021-06-01] MEDS ORDERED: FAMOTIDINE 10 MG TABLET PO ONE ×2 (09:20→09:23)
[2021-06-01] MEDS ORDERED: MAG HYDROX/AL HYDROX/SIMETH -MYLANTA- ORAL SUSPENSION PO ONE (09:20)
[2021-06-01] MEDS ORDERED: ACETAMINOPHEN 500 MG TABLET (FP) PO ONE (09:20)
[2021-06-01] MEDS ORDERED: FAMOTIDINE 20 MG TABLET ONE (09:25)
[2021-06-01] MEDS ORDERED: ACETAMINOPHEN 325 MG TABLET (FP) ONE (09:25)
[2021-06-01] MEDS ORDERED: MAG HYDROX/AL HYDROX/SIMETH 30 ML UNIT-DOSE CUP ONE (09:25)
== END 2021-06-01 10:35 | disposition home or self-care (01) ==
LOC: FER 09:07
DX: R10.84 Generalized abdominal pain (principal)
CPT/HCPCS: 93005; 99283-25

== ENCOUNTER 2021-06-27 12:00 | Emergency (ER) | payer OTHER, BC ==
[2021-06-27 12:14] VITALS: BP 144/73; PULSE 66; TEMP 97.9; BMI 27.3
[2021-06-28 16:07] LABS: SARS-CoV-2 NAA Not Detected (Not Detected)
== END 2021-06-27 14:12 | disposition home or self-care (01) ==
LOC: FER 12:00
DX: J06.9 Acute upper respiratory infection, unspecified (principal)
CPT/HCPCS: 71046-TC-FY; 99283-25; C9803-CS; U0003; U0005

== ENCOUNTER 2021-10-14 10:53 | Emergency (ER) | payer OTHER, BC ==
[2021-10-14 11:06] VITALS: BP 135/64; PULSE 63; RESP 16; TEMP 98.3; BMI 26.9
[2021-10-14] MEDS ORDERED: METHOCARBAMOL 500 MG TABLET PO ONE ×2 (11:13→11:31)
[2021-10-14] MEDS ORDERED: ACETAMINOPHEN 325 MG TABLET (FP) PO ONE (11:14)
[2021-10-14] MEDS ORDERED: KETOROLAC TROMETHAMINE 30 MG/1 ML VIAL IM ONE (11:14)
[2021-10-14] MEDS ORDERED: LIDOCAINE 5% TOPICAL PATCH TP ONE (11:14)
[2021-10-14] MEDS ORDERED: ACETAMINOPHEN 325 MG TABLET (FP) ONE (11:25)
[2021-10-14] MEDS ORDERED: KETOROLAC TROMETHAMINE 15 MG/ML VIAL ONE (11:26)
[2021-10-14] MEDS ORDERED: LIDOCAINE 5% TOPICAL PATCH ONE (11:26)
[2021-10-14] MEDS ORDERED: METHOCARBAMOL 500 MG TABLET ONE (11:26)
[2021-10-14] MEDS ORDERED: LIDOCAINE PATCH REMOVAL MC SCH (22:00)
== END 2021-10-14 11:58 | disposition home or self-care (01) ==
LOC: FER 10:53
PROC: 3E023GC Introduction of Other Therapeutic Substance into Muscle, Percutaneous Approach (ICD-10-PCS; principal; 2021-10-14)
DX: M54.2 Cervicalgia (principal)
CPT/HCPCS: 99284-25

== ENCOUNTER 2021-11-08 11:23 | Emergency (ER) | payer OTHER, BC ==
[2021-11-08] MEDS ORDERED: predniSONE 10 MG TABLET (UD) PO ONE (12:04)
[2021-11-08] MEDS ORDERED: predniSONE 10 MG TABLET (UD) ONE (12:07)
[2021-11-08 12:15] VITALS: BP 123/74; PULSE 79; RESP 18; TEMP 98.4; BMI 26.7
== END 2021-11-08 12:27 | disposition home or self-care (01) ==
LOC: FER 11:23
DX: M54.2 Cervicalgia (principal); M25.511 Pain in right shoulder; M25.512 Pain in left shoulder
CPT/HCPCS: 99283-25

== ENCOUNTER 2023-05-06 10:45 | Emergency (ER) | payer OTHER, BC ==
[2023-05-06 10:57] VITALS: BP 150/75; PULSE 74; RESP 15; TEMP 97.2; BMI 28.1
[2023-05-06] MEDS ORDERED: predniSONE 20 MG TABLET (UD) ONE (11:28)
[2023-05-06] MEDS: predniSONE 20 MG TABLET (UD) PO ONE (11:30)
== END 2023-05-06 11:55 | disposition home or self-care (01) ==
LOC: FER 10:45
DX: M10.9 Gout, unspecified (principal); M79.675 Pain in left toe(s)
CPT/HCPCS: 73630-TC-LT; 99283-25

== ENCOUNTER 2023-08-11 19:25 | Emergency (ER) | payer OTHER, BC ==
[2023-08-11 19:45] VITALS: BP 140/70; PULSE 65; RESP 16; TEMP 97.8; BMI 26.6
[2023-08-11] MEDS ORDERED: FAMOTIDINE 20 MG/50 ML IVPB 20 MG/50 ML MG IVPB ONE (20:14)
[2023-08-11] MEDS: FAMOTIDINE 20 MG/50 ML IVPB 20 MG/50 ML MG IVPB ONE (20:40)
[2023-08-11 20:58] LABS: HEMATOCRIT 41.4 % (35.4-49); HEMOGLOBIN 13.6 G/dL (11.7-16.9); MCH 30.1 pg (25.7-33.7); MCHC 32.8 g/dl (32.0-35.9); MEAN CELL VOLUME 91.9 fl (80-96); MEAN PLT VOLUME 7.9 fl (7.5-11.1); PLATELET COUNT 149.7 10^3/uL (134-434); RBC 4.51 10^6/uL (4.00-5.60); RDW 13.9 % (11.9-15.9); WHITE BLOOD COUNT 7.6 10^3/uL (4.0-10.8)
[2023-08-11 21:12] LABS: BILIRUBIN,TOTAL 0.9 mg/dl (0.2-1); CALCIUM 9.6 mg/dl (8.5-10.1); POTASSIUM 4.1 mmol/L (3.5-5.1); TOT PROT 5.9 g/dl (6.4-8.2)
[2023-08-11 21:22] LABS: PLATELET ESTIMATE ADEQUATE
[2023-08-11] MEDS ORDERED: MAG HYDROX/AL HYDROX/SIMETH 30 ML UNIT-DOSE CUP ONE (22:04)
[2023-08-11] MEDS: MAG HYDROX/AL HYDROX/SIMETH 30 ML UNIT-DOSE CUP PO ONE (22:05)
== END 2023-08-11 23:06 | disposition home or self-care (01) ==
LOC: FER 19:25
PROC: 3E033GC Introduction of Other Therapeutic Substance into Peripheral Vein, Percutaneous Approach (ICD-10-PCS; principal; 2023-08-11)
DX: K29.00 Acute gastritis without bleeding (principal); R10.13 Epigastric pain
CPT/HCPCS: 36415; 80053; 84484; 85027; 93005; 99284-25

== ENCOUNTER 2023-11-02 13:31 | Emergency (ER) | payer OTHER, BC ==
[2023-11-02 13:50] VITALS: BP 121/69; PULSE 98; RESP 20; TEMP 97.5; BMI 25.7
[2023-11-02] MEDS ORDERED: predniSONE 20 MG TABLET (UD) ONE (15:00)
[2023-11-02] MEDS: predniSONE 20 MG TABLET (UD) PO ONE (15:01)
== END 2023-11-02 15:11 | disposition home or self-care (01) ==
LOC: FER 13:31
DX: M10.9 Gout, unspecified (principal); M79.672 Pain in left foot
CPT/HCPCS: 73630-TC-LT; 99283-25

== ENCOUNTER 2024-09-24 12:36 | Emergency (ER) | payer OTHER, BC ==
[2024-09-24 12:51] VITALS: BP 158/78; PULSE 76; RESP 18; TEMP 97.4; BMI 25.8
[2024-09-24] MEDS ORDERED: INDOMETHACIN 25 MG CAPSULE ONE (13:36)
[2024-09-24] MEDS: INDOMETHACIN 50 MG CAPSULE PO ONE (13:39)
== END 2024-09-24 14:47 | disposition home or self-care (01) ==
LOC: FER 12:36
DX: M10.071 Idiopathic gout, right ankle and foot (principal); M25.571 Pain in right ankle and joints of right foot
CPT/HCPCS: 99283-25